=== PATIENT | male | born 1995 | race African-American/Black ===

== ENCOUNTER 2017-09-27 03:24 | Emergency (ER) | payer SELFPAY ==
[~2017-09-27] VITALS: Ht 182.9 cm; Wt 95.0 kg
[2017-09-27] MEDS ORDERED: TETANUS/DIPHTHERIA TOXOID ADULT 0.5 ML VIAL IM ONE (04:20)
[2017-09-27 04:39] VITALS: BP 141/84; PULSE 98; RESP 18; TEMP 98; O2SAT 99
--- NOTE | 2017-09-27 04:43 | PD ---
HPI Chief Complaint: Fall Time Seen by Provider: 04:40 Travel History International Travel<30 days: No Contact w/Intl Traveler<30days: No Traveled to known affect area: No History of Present Illness HPI 22-year-old male patient presents to the ER today, apparently has been drinking alcohol, and fell and hit his head on the table, they deny any loss of consciousness. He has a laceration to the top of his scalp. He denies any other injuries or injuries. Modifying Factors: None Associated Signs & Symptoms: EtOH intoxication, scalp laceration, head injury Risk Factors: None PFSH Social History Tobacco Use: No Allergies-Medications (Allergen,Severity, Reaction): Coded Allergies: No Known Allergies (Verified Allergy, Unknown, 09/27/17) Reported Meds & Prescriptions Reported Meds & Active Scripts Active No Active Prescriptions or Reported Medications Review of Systems ROS Limitations: Intoxication Except as stated in HPI: all other systems reviewed are Neg Physical Exam Narrative GENERAL: Well-developed young after [place] male patient currently in moderate distress. Awake, alert, alcohol on breath. Oriented 3. SKIN: Focused skin assessment warm/dry. HEAD: There is a 4 cm scalp laceration to the top of the scalp. Normocephalic. EYES: Pupils equal and round. No scleral icterus. No injection or drainage. ENT: No nasal bleeding or discharge. Mucous membranes pink and moist. NECK: Trachea midline. No JVD. CARDIOVASCULAR: Regular rate and rhythm. No murmur appreciated. RESPIRATORY: No accessory muscle use. Clear to auscultation. Breath sounds equal bilaterally. GASTROINTESTINAL: Abdomen soft, non-tender, nondistended. Hepatic and splenic margins not palpable. MUSCULOSKELETAL: No obvious deformities. No clubbing. No cyanosis. No edema. NEUROLOGICAL: Awake and alert. No obvious cranial nerve deficits. Motor grossly within normal limits. Slurred speech. PSYCHIATRIC: Appropriate mood and affect; insight and judgment normal. Data Data Last Documented VS Vital Signs Date Time Temp Pulse Resp B/P (MAP) Pulse Ox O2 Delivery O2 Flow Rate FiO2 09/27/17 04:39 98.0 98 18 141/84 (103) 99 Orders Orders Complete Blood Count With Diff (09/27/17 04:34) Comprehensive Metabolic Panel (09/27/17 04:34) Ct Brain W/O Iv Contrast(Rout) (09/27/17 04:34) Drug Screen, Random Urine (09/27/17 04:34) Alcohol (Ethanol) (09/27/17 04:34) Tetanus/Diphtheria Tox Adult (Tetanus/Di (09/27/17 04:20) Ed Discharge Order (09/27/17 06:03) [facility] Medical Decision Making Medical Screen Exam Complete: Yes Emergency Medical Condition: Yes Medical Record Reviewed: Yes Differential Diagnosis Head injury, scalp laceration: Rule out intracranial injuries Narrative Course Tetanus shot was updated in the ER. CAT scan ordered for further evaluation for intracranial injuries. PA asked to stable laceration of the scalp. Patient has refused lab draws and refused to get toan. At this point, his scalp wound was irrigated and braiding was done to the hair and Dermabond it in order to approximate the scalp wound. Wound care instructions are given. Head injury instructions are given. Return for any worsening disorientation, vomiting, worsening headaches or new symptoms as needed. The plan has been discussed with the patient and he states understanding. Procedures Procedure Narrative Patient had refused to get toan. Wound was irrigated with copious normal saline. And hair braiding was done to approximate scalp wound. Hair was brought together to approximate the wound from both sides, and twisted and Dermabond it down. Patient tolerated procedure well. Diagnosis Primary Impression: Alcohol intoxication Additional Impressions: Scalp laceration Head injury Scripts No Active Prescriptions or Reported Meds Disposition: 01 DISCHARGE HOME Condition: Stable Pato Bhandari MD Sep 27, 2017 04:43
--- NOTE | 2017-09-27 05:26 | RADRPT ---
EXAM DATE/TIME: 09/27/2017 04:41 [facility] COMPARISON: No previous studies available for comparison. INDICATIONS : Trauma. Fall. ETOH RADIATION DOSE: 56.35 CTDIvol (mGy) MEDICAL HISTORY : None SURGICAL HISTORY : None. ENCOUNTER: Initial ACUITY: 1 day PAIN SCALE: 5/10 LOCATION: Left cranial TECHNIQUE: Multiple contiguous axial images were obtained of the head. Using automated exposure control and adj ustment of the mA and/or kV according to patient size, radiation dose was kept as low as reasonably a chievable to obtain optimal diagnostic quality images. DICOM format image data is available electro nically for review and comparison. FINDINGS: CEREBRUM: The ventricles are normal for age. No evidence of midline shift, mass lesion, hemorrhage or acute in farction. No extra-axial fluid collections are seen. POSTERIOR FOSSA: The cerebellum and brainstem are intact. The 4th ventricle is midline. The cerebellopontine angle i s unremarkable. EXTRACRANIAL: The visualized portion of the orbits is intact. SKULL: The calvaria is intact. No evidence of skull fracture. CONCLUSION: Negative noncontrast CT brain. Cleve Hurtado MD on September 27, 2017 at 5:23 Board Certified Radiologist. This report was verified electronically.
== END 2017-09-27 06:36 | disposition home or self-care (01) ==
LOC: NEPC 03:24
DX: S01.01XA Laceration without foreign body of scalp, initial encounter (principal); S09.90XA Unspecified injury of head, initial encounter; F10.129 Alcohol abuse with intoxication, unspecified; W18.09XA Striking against other object with subsequent fall, initial encounter; Z23 Encounter for immunization
CPT/HCPCS: 12002; 70450; 90471